=== PATIENT | male | born 1955 | race Caucasian/White ===

== ENCOUNTER 2017-01-11 07:53 | Inpatient (IN) | payer OTHER ==
[~2017-01-11] VITALS: Ht 182.9 cm; Wt 75.4 kg
[2017-01-11] MEDS ORDERED: SYMB16INH INH (08:10)
[2017-01-11] MEDS ORDERED: TIOT18INH INH (08:10)
[2017-01-11] MEDS ORDERED: PROAAER10 INH (08:10)
[2017-01-11] MEDS ORDERED: IPRATROPIUM 0.5MG/ALBUTEROL 2.5MG INH SOL UD 3ML (DUONEB)(J7620) As Ordered ONE (08:12)
[2017-01-11] MEDS ORDERED: methylPREDNISolone INJ 125 MG/2 ML VIAL (J2930) IV ONE (08:30)
[2017-01-11 08:42] LABS: BASO # 0.1 10^3/uL (0.0-0.2); BASO % 0.7 % (0.0-1.0); EOS # 0.4 10^3/uL (0.0-0.50); EOS % 3.9 % (0.0-3.0); IMMATURE GRANULOCYTE % 0.6 % (0-0); LYMPH # 1.5 10^3/uL (1.5-4.5); LYMPH % 14.2 % (24.0-44.0); MEAN CORPUSCULAR HEMOGLOBIN 30.7 pg (27.0-33.0); MEAN CORPUSCULAR HGB CONC 33.3 g/dl (32.0-36.5); MEAN CORPUSCULAR VOLUME 92.4 fl (80.0-96.0); MONO # 0.9 10^3/uL (0.0-0.8); MONO % 8.7 % (0.0-5.0); NEUTROPHILS # 7.7 10^3/uL (1.8-7.7); NEUTROPHILS % 71.9 % (36.0-66.0); PLATELET COUNT, AUTOMATED 235 10^3/uL (150-450); RED CELL DISTRIBUTION WIDTH 13.3 % (11.5-14.5); WHITE BLOOD COUNT 10.7 10^3/uL (4.0-10.0)
[2017-01-11] MEDS: IPRATROPIUM 0.5MG/ALBUTEROL 2.5MG INH SOL UD 3ML (DUONEB)(J7620) NEB PRN ×4 (08:49→16:47)
[2017-01-11 08:51] LABS: ABG BASE EXCESS -1.6 (-2.0-2.0); ABG HCO3 21.9 MEQ/L (22.0-26.0); ABG PARTIAL PRESSURE CO2 34.1 mmHg (35.0-45.0); ABG PARTIAL PRESSURE O2 62.2 mmHg (75.0-100.0); ABG TOTAL CO2 22.9 MEQ/L (23.0-31.0); ABG pH (ARTERIAL) 7.425 UNITS (7.350-7.450)
--- NOTE | 2017-01-11 08:54 | REP ---
Portable chest, 08:39 a.m.: Lung andrade are clear. Cardiac size is normal. The samuel and mediastinum are unremarkable. There is thoracic scoliosis convex right. Impression: No acute cardiopulmonary findings. Scoliosis. Signed by Marco Antonio Olsen MD 01/11/2017 08:46 A
[2017-01-11 09:11] LABS: ANION GAP 6 MEQ/L (8-16); BLOOD UREA NITROGEN 14 MG/DL (7-18); CALCIUM LEVEL 8.9 MG/DL (8.8-10.2); CARBON DIOXIDE LEVEL 26 MEQ/L (21-32); CHLORIDE LEVEL 110 MEQ/L (98-107); CREATININE FOR GFR 1.06 MG/DL (0.70-1.30); GLOMERULAR FILTRATION RATE > 60.0 (>49); GLUCOSE, FASTING 114 MG/DL (80-110); SODIUM LEVEL 142 MEQ/L (136-145)
[2017-01-11] MEDS ORDERED: SPIR12.9 INH (10:05)
[2017-01-11] MEDS ORDERED: VENTAER INH (10:05)
[2017-01-11] MEDS ORDERED: TYLE325T5 PO (10:06)
[2017-01-11] MEDS ORDERED: ACETAMINOPHEN TAB 650MG DOSE (2X325MG) PO PRN (10:45)
[2017-01-11] MEDS ORDERED: ISOVUE-370 76% 100ML VIAL (Q9967) As Ordered ONE (10:58)
[2017-01-11] MEDS ORDERED: ONDANSETRON 4MG/2ML VIAL (J2405) IV PRN (11:00)
--- NOTE | 2017-01-11 11:38 | REP ---
CT of the chest with IV contrast, CT pulmonary artery angiography: There are no emboli in the pulmonary trunk or central pulmonary arteries. There are no emboli in the pulmonary lobe or segment branches. There are no infiltrates or effusions. There are no masses or nodules. Bronchiectasis is suspected. This should be correlated with clinical findings. There is no mediastinal adenopathy. There is an enlarged right hilar node measuring up to 10 mm short axis. There is no left hilar adenopathy. There is no axillary adenopathy. The thoracic aorta is unremarkable. Cardiac size normal. There is no pericardial effusion. The visualized upper abdominal contents are unremarkable. Impression: No pulmonary embolus. No infiltrate, effusion or mass. Bronchiectasis is suspected. Correlate with clinical findings. There is an enlarged right hilar node measuring up to 1 cm short axis. No other adenopathy. Signed by Marco Antonio Olsen MD 01/11/2017 11:30 A
--- NOTE | 2017-01-11 11:52 | REP ---
CT NECK WITH CONTRAST: HISTORY: Rule out pulmonary embolism. CONTRAST: Isovue-370, 100 mL. Hypodensity is present in the right vallecula. This represents a small cyst or secretions. The naso-, apolonia-, and hypopharynx, larynx, and subglottic trachea are otherwise normal in appearance. The salivary and thyroid glands are normal in size and density. Small lymph nodes, less than 1 cm in size are present in the internal jugular chains, posterior triangles, submandibular, and submental areas. Atherosclerotic calcification is present at the carotid bifurcations. Degenerative change is present in the cervical spine. The lung apices are clear. Mucosal thickening is present in the sinuses. IMPRESSION: There is a small cyst versus secretions in the right vallecula. Unreviewed
[2017-01-11] MEDS: SYMBICORT 160/4.5MCG INHALER 6GM INH SCH ×2 (12:28→20:38)
[2017-01-11] MEDS: TIOTROPIUM INHALER/CAPSULE (SPIRIVA) INH SCH (12:28)
[2017-01-11] MEDS: NS 1,000 ML IV SCH ×2 (12:31→18:22)
[2017-01-11] MEDS: IPRATROPIUM 0.5MG/ALBUTEROL 2.5MG INH SOL UD 3ML (DUONEB)(J7620) NEB SCH ×2 (13:49→18:59)
--- NOTE | 2017-01-11 14:13 | HPE ---
DATE OF ADMISSION: 01/11/2017 PRIMARY CARE PROVIDER: Patient reported seeing a primary care doctor at [facility]. CARDIOLOGY: Patient sees Dr. Covarrubias at [facility]. PULMONOLOGY: Sees pulmonology at [facility]. CHIEF COMPLAINT: Shortness of breath. HISTORY OF THE PRESENT ILLNESS: This is a 61-year-old male patient. The patient is a very poor historian. He presented to [facility] with underlying medical history of gastroesophageal reflux disease (GERD), essential hypertension, history of traumatic brain injury, questionable, does not know who the name of his primary care provider, chronic obstructive pulmonary disease (COPD) and also atrial fibrillation - not on anticoagulation, presented to [facility] with shortness of breath, acute onset, for the past day or so, that is progressively worsening, found to be in atrial fibrillation with rapid ventricular response. The patient reported coughing, nonproductive. Denies any sick contact, recent travel. Reported questionable mold exposure at home given patient just recently moved into a friend's house. Has recently been intubated. Has a, as per patient, throat cyst. The patient in the emergency department (ED), was found to be in atrial fibrillation with rapid ventricular response into the 170s, given Cardizem, reverted back to sinus. Also given steroid nebulizer treatment with improvement. The patient reported significant wheezing, significant cough. Denies any chest pain, pressure, discomfort, fevers, chills, lightheadedness, vision change, hearing change, diarrhea, constipation. Denies any sick contact. The patient stated that his medications for atrial fibrillation and blood pressure have been discontinued by his doctor but further investigation was done. Spoke to Dr. Mullen at [facility], is aware that the patient does have a history of atrial fibrillation. The patient's anticoagulation was discontinued. Last visit was in October. Anticoagulation, Xarelto, was discontinued because it was believed that the patient has been in sinus for 2 months and the patient's atrial fibrillation is most likely due to patient's underlying pulmonary disease. Furthermore, the patient has been placed on lisinopril 5 mg by mouth daily and metoprolol 50 mg by mouth twice a day. That was not discontinued by the patient's route delivery service driver. Will obtain further information from patient's primary care provider. This information was further verified with Dr. Campbell, Cardiology manager mission as well. ALLERGIES: ASPIRIN and NONSTEROIDAL ANTI-INFLAMMATORY DRUGS (NSAIDS). PAST MEDICAL HISTORY: Hypertension. GERD. Atrial fibrillation. Traumatic brain injury. COPD, not oxygen dependent. PAST SURGICAL HISTORY: None. SOCIAL HISTORY: Smokes half a pack per day for 20+ years. Patient denies ethyl alcohol (ETOH), although it was suspicious that the patient might be minimizing his situation. He lives with a friend at this time. FAMILY HISTORY: Mother with hypertension. History of intubation due to COPD exacerbation. REVIEW OF SYSTEMS: Reported shortness of breath, was found to be in atrial fibrillation with rapid ventricular response in the emergency room. Further atrial fibrillation was verified with record from cardiology office. All other review of systems are negative. HOME MEDICATIONS: - acetaminophen 650 mg by mouth every 4 hours as needed - Ventolin inhaler every 4 hours as needed - Symbicort 160/4.5 inhalation twice a day - Spiriva inhalation daily - Although, patient should also be on lisinopril 5 mg by mouth daily, metoprolol 50 mg by mouth twice a day as well, according to cardiology record. PHYSICAL EXAMINATION: VITAL SIGNS: Temperature 98.1, pulse initially at 177, currently at 98, respirations 20, blood pressure 122/77, pulse oximetry 95% on 3 liters nasal cannula. GENERAL: Patient alert and oriented times three, in no acute distress. HEENT: Normocephalic, atraumatic. PULMONARY: Bilateral expiratory wheeze. CARDIAC: Regular rate and rhythm. Normal S1, S2. ABDOMEN: Soft, nontender. Positive bowel sounds. EXTREMITIES: No clubbing, cyanosis or edema. EKG initially shows atrial fibrillation with rapid ventricular response of 170. Repeat shows sinus rhythm with no ST segment changes. LABORATORY: WBC 10.7, hemoglobin and hematocrit 16.1 over 48.4, platelets 235. Chemistry: Sodium 142, potassium 4, chloride 110, bicarbonate 26, BUN 14, creatinine 1.06. Cardiac enzymes negative times two. TSH within normal limits. C-reactive protein within normal limits. CT angio negative for pulmonary embolism (PE). ASSESSMENT AND PLAN: This is a 61-year-old male patient with underlying medical history of chronic obstructive pulmonary disease, history of intubation, not on oxygen at home, hypertension, gastroesophageal reflux disease, traumatic brain injury, paroxysmal atrial fibrillation, admitted to [facility] with acute COPD exacerbation with atrial fibrillation with rapid ventricular response. Problems: 1. Acute chronic obstructive pulmonary disease (COPD) exacerbation, secondary to environmental exposure likely. Patient and family services (PFS) has been consulted. Patient reported having mold exposure from house. Solu-Medrol. Withholding antibiotic given C-reactive protein negative. Followup cultures and respiratory panel. CT angio negative for pulmonary embolism (PE). Nebulizer treatment, inhalers. Will taper steroids as tolerated. 2. Atrial fibrillation with rapid ventricular response. Patient converted to sinus with one dose of Cardizem. Case discussed with the on-call doctor from [facility], Dr. Mullen. Patient should be on metoprolol 50 mg by mouth twice a day, is not on anticoagulation, which was discontinued by the patient's route delivery service driver in October. Will place the patient back on Lopressor 25 mg by mouth twice a day and assess. If patient's respiration gets worse, will consider switching to Cardizem. Telemetry monitoring. Serial cardiac enzymes. Thyroid-stimulating hormone (TSH) appreciated. 3. Hypertension. Patient is on metoprolol 25 mg by mouth twice a day Adjust as needed. Patient is also supposed to be on lisinopril 5 mg by mouth daily, but the patient reported not taking any of those because he was under the impression that blood pressure elevation is due to his respiratory distress. Will monitor blood pressure and adjust as needed. Patient is ALLERGIC TO ASPIRIN. 4. Gastroesophageal reflux disease. Continue current proton pump inhibitor (PPI). 5. Chronic obstructive pulmonary disease (COPD). Management as above. 6. Deep vein thrombosis (DVT) prophylaxis. Heparin subcutaneously. DISPOSITION: Pending clinical improvement.
[2017-01-11 14:30] VITALS: BP 140/60
[2017-01-11] MEDS: PANTOPRAZOLE 40MG TAB (PROTONIX) PO SCH (14:50)
[2017-01-11] MEDS: HEPARIN SOD (PORCINE) 5000 UNITS/ML VIAL SC SCH ×2 (14:50→21:08)
[2017-01-11] MEDS: SENOKOT S TAB PO SCH ×2 (14:50→20:32)
[2017-01-11 16:00] VITALS: BP 133/83
[2017-01-11] MEDS: methylPREDNISolone INJ 125 MG/2 ML VIAL (J2930) IV SCH (16:39)
[2017-01-11] MEDS: guaiFENesin ER 600 MG TAB PO SCH (18:00)
[2017-01-11 20:00] VITALS: BP 128/81
[2017-01-11] MEDS: METOPROLOL TART 25 MG TABLET PO SCH (20:32)
[2017-01-11 23:59] VITALS: BP 124/72
[2017-01-12] MEDS: methylPREDNISolone INJ 125 MG/2 ML VIAL (J2930) IV SCH ×3 (01:12→16:13)
[2017-01-12] MEDS: IPRATROPIUM 0.5MG/ALBUTEROL 2.5MG INH SOL UD 3ML (DUONEB)(J7620) NEB SCH ×4 (02:21→20:41)
[2017-01-12 04:00] VITALS: BP 137/76
[2017-01-12 05:33] LABS: MEAN CORPUSCULAR HEMOGLOBIN 31.3 pg (27.0-33.0); MEAN CORPUSCULAR HGB CONC 33.7 g/dl (32.0-36.5); MEAN CORPUSCULAR VOLUME 92.9 fl (80.0-96.0); PLATELET COUNT, AUTOMATED 217 10^3/uL (150-450); RED CELL DISTRIBUTION WIDTH 13.3 % (11.5-14.5); WHITE BLOOD COUNT 20.8 10^3/uL (4.0-10.0)
[2017-01-12] MEDS: HEPARIN SOD (PORCINE) 5000 UNITS/ML VIAL SC SCH ×3 (05:40→21:23)
[2017-01-12 05:45] LABS: INR 1.04
[2017-01-12 05:54] LABS: ANION GAP 10 MEQ/L (8-16); BLOOD UREA NITROGEN 13 MG/DL (7-18); CALCIUM LEVEL 8.8 MG/DL (8.8-10.2); CARBON DIOXIDE LEVEL 24 MEQ/L (21-32); CHLORIDE LEVEL 110 MEQ/L (98-107); CREATININE FOR GFR 0.89 MG/DL (0.70-1.30); GLOMERULAR FILTRATION RATE > 60.0 (>49); GLUCOSE, FASTING 135 MG/DL (80-110); MAGNESIUM LEVEL 2.2 MG/DL (1.8-2.4); SODIUM LEVEL 144 MEQ/L (136-145)
[2017-01-12] MEDS: TIOTROPIUM INHALER/CAPSULE (SPIRIVA) INH SCH (07:19)
[2017-01-12] MEDS: SYMBICORT 160/4.5MCG INHALER 6GM INH SCH ×2 (07:19→20:43)
--- NOTE | 2017-01-12 07:59 | ECGEPIP ---
Stationary ECG Study [facility] - ED Test Date: 2017-01-11 Pat Name: ANDRA PAGAN Department: Room: - Gender: M Application Security Architect: ROCKY : 1955 Requested By: Rad Quintana Order Number: [id number] Reading MD: Nirali Toussaint Measurements Intervals [place] Rate: 177 P: KS: 0 QRS: 99 QRSD: 78 T: -76 QT: 234 QTc: 402 Interpretive Statements SUPRAVENTRICULAR TACHYCARDIA BORDERLINE RIGHT AXIS DEVIATION ST DEPRESSION, CONSIDER SUBENDOCARDIAL INJURY DLEAYED R PROGRESSION NO PRIOR FOR COMPARISON Electronically Signed On 01-12-2017 7:59:12 EDT by Nirali Toussaint
--- NOTE | 2017-01-12 08:00 | ECGEPIP ---
Stationary ECG Study [facility] - ED Test Date: 2017-01-11 Pat Name: ANDRA PAGAN Department: Room: - Gender: M Student Career Development Specialist: : 1955 Requested By: Rad Quintana Order Number: [id number] Reading MD: Nirali Toussaint Measurements Intervals [place] Rate: 91 P: 85 KS: 155 QRS: 88 QRSD: 83 T: 65 QT: 343 QTc: 423 Interpretive Statements SINUS RHYTHM DELAYED R PROGRESSION PRIOR NARROW COMPLEX TACHYCARDIA 8:12 Electronically Signed On 01-12-2017 8:00:31 EDT by Nirali Toussaint
[2017-01-12 08:06] VITALS: BP 142/92
[2017-01-12] MEDS: PANTOPRAZOLE 40MG TAB (PROTONIX) PO SCH (08:50)
[2017-01-12] MEDS: guaiFENesin ER 600 MG TAB PO SCH ×2 (08:50→20:39)
[2017-01-12] MEDS: METOPROLOL TART 25 MG TABLET PO SCH ×2 (08:50→17:42)
[2017-01-12] MEDS: SENOKOT S TAB PO SCH ×2 (08:50→20:39)
--- NOTE | 2017-01-12 09:17 | ECHO ---
DATE OF PROCEDURE: 01/11/2017 REFERRING PHYSICIAN: Dr. Cadena INDICATION: Cardiac dysrhythmia. Study was performed on 01/11/2017. Patient measures 72 inches and weighs 168 pounds. DIMENSIONS: IVS: 1.0 LV: 4.7 LVPW: 1.1 LA: 3.1 Aorta: 3.3 RV: 2.5 FINDINGS: This study is of acceptable technical quality. The views are somewhat limited on account of the patient's chronic obstructive pulmonary disease (COPD) . Left ventricle is of normal size and hyperdynamic contractility with estimated ejection fraction (EF) approximately 70%. I do not appreciate any segmental wall motion abnormalities. Right ventricle also appears normal size and systolic function. Both atria appear normal. Aortic, mitral and tricuspid valves appear normal. Pulmonic valve was not visualized. No pericardial effusion is noted. Inferior vena cava is normal size. Aortic root appears normal. Abdominal aorta also appears normal. Aortic arch was poorly seen. Doppler interrogation reveals no significant aortic, mitral or tricuspid valve disease. Mitral inflow pattern and tissue Doppler imaging of mitral annulus reveal probably normal diastolic function. The E and A velocities of mitral inflow are essentially the same. CONCLUSION: 1. Study is of acceptable technical quality considering patient's COPD. 2. Normal LV size and systolic function, likely normal diastolic function. 3. No significant valvular disease. 4. Normal central venous pressure. 5. Unable to estimate pulmonary artery pressure but no signs to suggest pulmonary hypertension. COMMENT: Subacute bacterial endocarditis (SBE) prophylaxis is not recommended. MTDD
[2017-01-12] MEDS ORDERED: SLF 3 ML SYR IV PRN (09:45)
[2017-01-12 12:00] VITALS: BP 125/87
--- NOTE | 2017-01-12 12:47 | IPNPDOC ---
Text Note Date of Service The patient was seen on 01/12/17. NOTE Subjective: Patient is a 61 year old male with a PMHx of HTN, Atrial fibrillation (not on anticoagulation), Hx of Traumatic brain injury, COPD, Hx of Throat cyst , and GERD who presented to the ER with complaints of acute onset SOB. Patient was found to be in a. fib with RVR in the ER. Patient was not on any medications for rate control, as he thought they were not required, confirmed with Dr. Mullen ([facility]) advised that he should be on Metoprolol BID. Xarelto was discontinued since he remained in sinus rhythm for 2 months. Patient was seen and examined at the bedside. Currently he notes that his breathing is improving. He still notes some wheezing and productive cough. Objective: Vitals (See below) General: Lying in bed, no acute distress, comfortable, AAOx3 HEENT: NC, AT CVS: RRR, +S1S2 Lungs: Fair air entry b/l, Diffuse expiratory wheezing Abdomen: Soft, ND, NT Extremities: - Edema, - Calf tenderness Assessment and plan: Acute COPD exacerbation - likely 2/2 environmental exposure - Presented with SOB, wheezing and productive cough - Physical with diffuse wheezing - Sputum culture contaminated, Resp Panel negative; Blood cultures - no growth at 24 hours - CTA 01/11: No PE, no infiltrates, effusion or mass, bronchiectasis suspected, enlarged R hilar node up to 1 cm, no other adenopathy - c/w Solumedrol and Duoneb - PFS consulted; has mold at his house Leukocytosis - likley 2/2 corticosteroid use - No fevers - Will hold off on antibiotics at this time s/p Atrial fibrillation with RVR - converted to sinus rhythm after Cardizem IV was given - TSH within normal limits - Dr. Cadena has discussed case with [facility] the [facility] (Dr. Mullen); will c/w Metoprolol for rate control - c/w Metoprolol tartrate 25 BID - Anticoagulation was discontinued HTN - BP remains moderately controlled - c/w Metoprolol 25 BID - If it remains uncontrolled; will re-start Lisinopril 5 Hx of Traumatic brain injury Throat cyst GERD - c/w Protonix DVT prophylaxis - c/w Heparin SQ VS,Fishbone, I+O VS, Fishbone, I+O Laboratory Tests 01/12/17 04:59 Red Blood Count 4.51, Mean Corpuscular Volume 92.9, Mean Corpuscular Hemoglobin 31.3, Mean Corpuscular Hemoglobin Concent 33.7, Red Cell Distribution Width 13.3 , Calcium Level 8.8 Vital Signs Date Time Temp Pulse Resp B/P (MAP) Pulse Ox O2 Delivery O2 Flow Rate FiO2 01/12/17 08:50 92 140/92 01/12/17 08:06 98.1 24 96 Nasal Cannula 3.0 I&O- Last 24 Hours up to 6 AM 01/13/17 06:00 Intake Total 240 ml Output Total 0 ml Balance 240 ml HIPOLITO CASTORENA MD Jan 12, 2017 12:47
[2017-01-12] MEDS: SLF 3 ML SYR IV SCH ×2 (13:23→21:23)
[2017-01-12 16:00] VITALS: BP 139/86
[2017-01-12 17:16] VITALS: BP 129/84
[2017-01-12 20:36] VITALS: BP 130/78
[2017-01-13] VITALS: BP 117/78
[2017-01-13] MEDS: methylPREDNISolone INJ 125 MG/2 ML VIAL (J2930) IV SCH ×2 (01:11→08:31)
[2017-01-13] MEDS: METOPROLOL TART 25 MG TABLET PO SCH ×4 (01:12→18:51)
[2017-01-13] MEDS: IPRATROPIUM 0.5MG/ALBUTEROL 2.5MG INH SOL UD 3ML (DUONEB)(J7620) NEB SCH ×4 (01:37→19:49)
[2017-01-13 04:00] VITALS: BP 140/70
[2017-01-13] MEDS: IPRATROPIUM 0.5MG/ALBUTEROL 2.5MG INH SOL UD 3ML (DUONEB)(J7620) NEB PRN ×2 (04:44→04:53)
[2017-01-13 05:24] LABS: MEAN CORPUSCULAR HEMOGLOBIN 30.7 pg (27.0-33.0); MEAN CORPUSCULAR HGB CONC 32.6 g/dl (32.0-36.5); MEAN CORPUSCULAR VOLUME 94.2 fl (80.0-96.0); PLATELET COUNT, AUTOMATED 252 10^3/uL (150-450); RED CELL DISTRIBUTION WIDTH 13.4 % (11.5-14.5); WHITE BLOOD COUNT 24.5 10^3/uL (4.0-10.0)
[2017-01-13] MEDS: HEPARIN SOD (PORCINE) 5000 UNITS/ML VIAL SC SCH ×2 (05:28→14:50)
[2017-01-13] MEDS: SLF 3 ML SYR IV SCH ×3 (05:29→21:24)
[2017-01-13 05:32] LABS: INR 1.01
[2017-01-13 05:36] LABS: ANION GAP 7 MEQ/L (8-16); BLOOD UREA NITROGEN 21 MG/DL (7-18); CALCIUM LEVEL 8.9 MG/DL (8.8-10.2); CARBON DIOXIDE LEVEL 26 MEQ/L (21-32); CHLORIDE LEVEL 111 MEQ/L (98-107); CREATININE FOR GFR 1.02 MG/DL (0.70-1.30); GLOMERULAR FILTRATION RATE > 60.0 (>49); GLUCOSE, FASTING 127 MG/DL (80-110); MAGNESIUM LEVEL 2.3 MG/DL (1.8-2.4); POTASSIUM SERUM 4.1 MEQ/L (3.5-5.1); SODIUM LEVEL 144 MEQ/L (136-145)
[2017-01-13] MEDS: SYMBICORT 160/4.5MCG INHALER 6GM INH SCH ×2 (07:18→19:50)
[2017-01-13] MEDS: TIOTROPIUM INHALER/CAPSULE (SPIRIVA) INH SCH (07:18)
[2017-01-13 08:00] VITALS: BP 127/87
[2017-01-13] MEDS: PANTOPRAZOLE 40MG TAB (PROTONIX) PO SCH (08:31)
[2017-01-13] MEDS: SENOKOT S TAB PO SCH ×2 (08:31→21:00)
[2017-01-13] MEDS: guaiFENesin ER 600 MG TAB PO SCH ×2 (08:31→21:24)
[2017-01-13 12:00] VITALS: BP 147/92
--- NOTE | 2017-01-13 14:07 | IPNPDOC ---
Text Note Date of Service The patient was seen on 01/13/17. NOTE Subjective: Patient is a 61 year old male with a PMHx of HTN, Atrial fibrillation (not on anticoagulation), Hx of Traumatic brain injury, COPD, Hx of Throat cyst , and GERD who presented to the ER with complaints of acute onset SOB. Patient was found to be in a. fib with RVR in the ER. Patient was not on any medications for rate control, as he thought they were not required, confirmed with Dr. Mullen ([facility]) advised that he should be on Metoprolol BID. Xarelto was discontinued since he remained in sinus rhythm for 2 months. Patient was seen and examined at the bedside. He notes that he has improvement in his breathing. He was noted to have an episode of atrial fibrillation with RVR yesterday afternoon and reverted back into sinus without any intervention. Objective: Vitals (See below) General: Lying in bed, no acute distress, comfortable, AAOx3 HEENT: NC, AT CVS: RRR, +S1S2 Lungs: Fair air entry b/l, Diffuse expiratory wheezing Abdomen: Soft, ND, NT Extremities: - Edema, - Calf tenderness Assessment and plan: Acute COPD exacerbation - likely 2/2 environmental exposure - Presented with SOB, wheezing and productive cough - Physical with diffuse wheezing - Sputum culture contaminated, Resp Panel negative; Blood cultures - no growth at 48 hours - CTA 01/11: No PE, no infiltrates, effusion or mass, bronchiectasis suspected, enlarged R hilar node up to 1 cm, no other adenopathy - c/w Solumedrol and Duoneb; Will taper solumedrol today - PFS consulted; has mold at his house Leukocytosis - likely 2/2 corticosteroid use - No fevers - Will hold off on antibiotics at this time Atrial fibrillation with RVR - Converted to sinus rhythm after Cardizem IV was given - Episode of a.fib with RVR on 01/12 afternoon - TSH within normal limits - Dr. Cadena has discussed case with [facility] (Dr. Mullen); will c/w Metoprolol for rate control - c/w Metoprolol tartrate 25 was increased to q6h for better rate controlled - Anticoagulation was discontinued by his Cask Maker, because patient was thought to be in sinus rhythm for 2 months - Will restart anticoagulation with Xarelto today HTN - BP remains moderately controlled - c/w Metoprolol 25 Q6H; will start lisinopril 5 Hx of Traumatic brain injury Throat cyst GERD - c/w Protonix DVT prophylaxis - on full anticoagulation with Xarelto VS,Fishbone, I+O VS, Fishbone, I+O Laboratory Tests 01/13/17 04:50 Red Blood Count 4.82, Mean Corpuscular Volume 94.2, Mean Corpuscular Hemoglobin 30.7, Mean Corpuscular Hemoglobin Concent 32.6, Red Cell Distribution Width 13.4 , Calcium Level 8.9 Vital Signs Date Time Temp Pulse Resp B/P (MAP) Pulse Ox O2 Delivery O2 Flow Rate FiO2 01/13/17 12:17 77 147/92 01/13/17 12:00 98.6 20 95 Nasal Cannula 3.0 I&O- Last 24 Hours up to 6 AM 01/14/17 06:00 Intake Total 240 ml Balance 240 ml HIPOLITO CASTORENA MD Jan 13, 2017 14:07
[2017-01-13] MEDS: LISINOPRIL 5 MG TAB PO SCH (15:35)
[2017-01-13 16:00] VITALS: BP 130/80
[2017-01-13] MEDS: RIVAROXABAN 20 MG TAB (XARELTO) PO SCH (18:51)
[2017-01-13 20:25] VITALS: BP 124/92
[2017-01-13] MEDS: methylPREDNISolone INJ 40 MG/1 ML VIAL (J2920) IV SCH (21:24)
[2017-01-14 00:27] VITALS: BP 128/82
[2017-01-14] MEDS: METOPROLOL TART 25 MG TABLET PO SCH ×3 (00:47→13:30)
[2017-01-14] MEDS: IPRATROPIUM 0.5MG/ALBUTEROL 2.5MG INH SOL UD 3ML (DUONEB)(J7620) NEB SCH ×4 (00:57→20:33)
[2017-01-14 04:05] VITALS: BP 142/98
[2017-01-14 05:27] LABS: MEAN CORPUSCULAR HEMOGLOBIN 30.8 pg (27.0-33.0); MEAN CORPUSCULAR HGB CONC 32.8 g/dl (32.0-36.5); MEAN CORPUSCULAR VOLUME 93.8 fl (80.0-96.0); PLATELET COUNT, AUTOMATED 214 10^3/uL (150-450); RED CELL DISTRIBUTION WIDTH 13.2 % (11.5-14.5); WHITE BLOOD COUNT 15.9 10^3/uL (4.0-10.0)
[2017-01-14 05:38] LABS: INR 1.53
[2017-01-14 05:45] LABS: ANION GAP 8 MEQ/L (8-16); BLOOD UREA NITROGEN 24 MG/DL (7-18); CALCIUM LEVEL 8.8 MG/DL (8.8-10.2); CARBON DIOXIDE LEVEL 29 MEQ/L (21-32); CHLORIDE LEVEL 108 MEQ/L (98-107); GLOMERULAR FILTRATION RATE > 60.0 (>49); GLUCOSE, FASTING 117 MG/DL (80-110); MAGNESIUM LEVEL 2.3 MG/DL (1.8-2.4); POTASSIUM SERUM 4.2 MEQ/L (3.5-5.1); SODIUM LEVEL 145 MEQ/L (136-145)
[2017-01-14] MEDS: SLF 3 ML SYR IV SCH ×3 (06:43→20:22)
[2017-01-14 07:40] VITALS: BP 142/80
[2017-01-14] MEDS: TIOTROPIUM INHALER/CAPSULE (SPIRIVA) INH SCH (08:41)
[2017-01-14] MEDS: SYMBICORT 160/4.5MCG INHALER 6GM INH SCH ×2 (08:41→20:38)
[2017-01-14] MEDS: methylPREDNISolone INJ 40 MG/1 ML VIAL (J2920) IV SCH (09:03)
[2017-01-14] MEDS: LISINOPRIL 5 MG TAB PO SCH (09:03)
[2017-01-14] MEDS: guaiFENesin ER 600 MG TAB PO SCH ×2 (09:04→20:21)
[2017-01-14] MEDS: PANTOPRAZOLE 40MG TAB (PROTONIX) PO SCH (09:04)
[2017-01-14] MEDS: SENOKOT S TAB PO SCH ×2 (09:04→20:21)
[2017-01-14 12:40] VITALS: BP 154/78
--- NOTE | 2017-01-14 14:15 | IPNPDOC ---
Text Note Date of Service The patient was seen on 01/14/17. NOTE Subjective: Patient is a 61 year old male with a PMHx of HTN, Atrial fibrillation (not on anticoagulation), Hx of Traumatic brain injury, COPD, Hx of Throat cyst , and GERD who presented to the ER with complaints of acute onset SOB. Patient was found to be in a. fib with RVR in the ER. Patient was not on any medications for rate control, as he thought they were not required, confirmed with Dr. Mullen ([facility]) advised that he should be on Metoprolol BID. Xarelto was discontinued since he remained in sinus rhythm for 2 months. Patient was seen and examined at the bedside. He notes that his breathing is doing better. Has not any additional episodes of atrial fibrillation. Currently still requiring supplemental oxygen. Objective: Vitals (See below) General: Lying in bed, no acute distress, comfortable, AAOx3 HEENT: NC, AT CVS: RRR, +S1S2 Lungs: Fair air entry b/l, Diffuse expiratory wheezing Abdomen: Soft, ND, NT Extremities: - Edema, - Calf tenderness Assessment and plan: Acute COPD exacerbation - likely 2/2 environmental exposure - Presented with SOB, wheezing and productive cough - Physical with mild expiratory wheezing - Sputum culture contaminated, Resp Panel negative; Blood cultures - no growth at 72 hours - CTA 01/11: No PE, no infiltrates, effusion or mass, bronchiectasis suspected, enlarged R hilar node up to 1 cm, no other adenopathy - c/w and DuoNeb; Will stop Solumedrol and Start Prednisone - PFS consulted; has mold at his house Leukocytosis - likely 2/2 corticosteroid use - No fevers - Will hold off on antibiotics at this time Atrial fibrillation with RVR - In ER converted to sinus rhythm after Cardizem IV was given; additional episode of a.fib with RVR on 01/12 afternoon - TSH within normal limits - Will start Metoprolol succinate to 50 BID; stop Metoprolol tartrate 25 q6h - c/w Xarelto today - Follow up with outpatient sports management professor HTN - BP remains moderately controlled - c/w Metoprolol and Lisinopril Hx of Traumatic brain injury Throat cyst GERD - c/w Protonix DVT prophylaxis - on full anticoagulation with Xarelto VS,Fishbone, I+O VS, Fishbone, I+O Laboratory Tests 01/14/17 05:01 Red Blood Count 4.68, Mean Corpuscular Volume 93.8, Mean Corpuscular Hemoglobin 30.8, Mean Corpuscular Hemoglobin Concent 32.8, Red Cell Distribution Width 13.2 , Calcium Level 8.8 Vital Signs Date Time Temp Pulse Resp B/P (MAP) Pulse Ox O2 Delivery O2 Flow Rate FiO2 01/14/17 09:03 95 Room Air 01/14/17 07:40 99.8 66 20 142/80 (100) 3.0 I&O- Last 24 Hours up to 6 AM 01/15/17 06:00 Intake Total 480 ml Balance 480 ml HIPOLITO CASOTRENA MD Jan 14, 2017 14:15
[2017-01-14] MEDS ORDERED: PRED10TA2 PO (14:16)
[2017-01-14] MEDS ORDERED: METO1TAB7 PO (14:16)
[2017-01-14] MEDS ORDERED: LISI-542 PO (14:16)
[2017-01-14] MEDS ORDERED: XARE20TA PO (14:16)
[2017-01-14 15:45] VITALS: BP 132/64
[2017-01-14] MEDS: RIVAROXABAN 20 MG TAB (XARELTO) PO SCH (17:31)
[2017-01-14] MEDS: predniSONE 20 MG TAB PO SCH (20:20)
[2017-01-14] MEDS: METOPROLOL SUCC (TopROL XL) 50MG **XL** TAB PO SCH (20:22)
[2017-01-15 00:45] VITALS: BP 106/65
[2017-01-15] MEDS: IPRATROPIUM 0.5MG/ALBUTEROL 2.5MG INH SOL UD 3ML (DUONEB)(J7620) NEB SCH ×2 (02:00→07:13)
[2017-01-15 03:35] VITALS: BP 127/89
[2017-01-15] MEDS: SLF 3 ML SYR IV SCH (05:23)
[2017-01-15 05:32] LABS: MEAN CORPUSCULAR HEMOGLOBIN 31.1 pg (27.0-33.0); MEAN CORPUSCULAR HGB CONC 33.4 g/dl (32.0-36.5); MEAN CORPUSCULAR VOLUME 93.1 fl (80.0-96.0); PLATELET COUNT, AUTOMATED 223 10^3/uL (150-450); RED CELL DISTRIBUTION WIDTH 13.1 % (11.5-14.5); WHITE BLOOD COUNT 15.1 10^3/uL (4.0-10.0)
[2017-01-15 05:45] LABS: ANION GAP 4 MEQ/L (8-16); BLOOD UREA NITROGEN 21 MG/DL (7-18); CALCIUM LEVEL 8.6 MG/DL (8.8-10.2); CARBON DIOXIDE LEVEL 30 MEQ/L (21-32); CHLORIDE LEVEL 107 MEQ/L (98-107); CREATININE FOR GFR 0.97 MG/DL (0.70-1.30); GLOMERULAR FILTRATION RATE > 60.0 (>49); GLUCOSE, FASTING 125 MG/DL (80-110); INR 1.41; MAGNESIUM LEVEL 2.2 MG/DL (1.8-2.4); POTASSIUM SERUM 4.3 MEQ/L (3.5-5.1); SODIUM LEVEL 141 MEQ/L (136-145)
[2017-01-15] MEDS: SYMBICORT 160/4.5MCG INHALER 6GM INH SCH (07:13)
[2017-01-15] MEDS: TIOTROPIUM INHALER/CAPSULE (SPIRIVA) INH SCH (07:13)
[2017-01-15 07:30] VITALS: BP 131/91
[2017-01-15 08:31] VITALS: BP 108/80
[2017-01-15] MEDS: LISINOPRIL 5 MG TAB PO SCH (08:31)
[2017-01-15] MEDS: predniSONE 20 MG TAB PO SCH (08:32)
[2017-01-15] MEDS: guaiFENesin ER 600 MG TAB PO SCH (08:32)
[2017-01-15] MEDS: PANTOPRAZOLE 40MG TAB (PROTONIX) PO SCH (08:32)
[2017-01-15] MEDS: SENOKOT S TAB PO SCH (08:33)
[2017-01-15] MEDS: METOPROLOL SUCC (TopROL XL) 50MG **XL** TAB PO SCH (08:33)
[2017-01-15] MEDS: IPRATROPIUM 0.5MG/ALBUTEROL 2.5MG INH SOL UD 3ML (DUONEB)(J7620) NEB PRN (11:08)
--- NOTE | 2017-01-18 13:44 | DSES ---
DATE OF ADMISSION: 01/11/2017 DATE OF DISCHARGE: 01/15/2017 ATTENDING PHYSICIAN: Marilyn Watts MD, Suzanne Cadena MD. PRIMARY CARE PHYSICIAN: In [place]. REFERRING PHYSICIAN: None. CONSULTING PHYSICIAN: None. CONDITION ON DISCHARGE: Stable. FINAL DIAGNOSES: 1. Acute chronic obstructive pulmonary disease (COPD) exacerbation. 2. Atrial fibrillation with rapid ventricular response (RVR). PROCEDURES: None. HISTORY OF PRESENT ILLNESS: Patient is a 61-year-old male with a past medical history of hypertension, atrial fibrillation, not on any anticoagulation after traumatic brain injury, COPD, history of throat cyst, and gastroesophageal reflux disease (GERD), who presented to the emergency room (ER) with complaints of acute onset shortness of breath. Patient was found to be in atrial fibrillation with RVR in the emergency room. Patient was not on any medications for rate control as he thought that they were not required. Confirmed with Dr. Mullen of [facility] Advised that he should be on metoprolol twice a day. Xarelto was discontinued since he remained in sinus rhythm for 2 months. HOSPITAL COURSE: 1. Acute COPD exacerbation with acute hypoxic respiratory failure, likely secondary to environmental exposure. Presented with shortness of breath, wheezing, and productive cough. Upon arrival, patient had an oxygenation of 88% status post 2 nebulization treatments with respiratory rate of 36 and he was tripoding upon arrival. Physical has revealed that his wheezing has improved significantly throughout the hospital course and is currently resolved. Sputum culture was contaminated. Respiratory panel was negative. Blood cultures were negative after 72 hours. CTA was acquired on 01/11/2017, which revealed no pulmonary embolism, no infiltrates, effusions, or mass. Bronchiectasis was suspected and large right hilar node up to 1 cm with no other adenopathy. Patient was continued with DuoNebs and continued with Solu-Medrol throughout the hospital course and was then transitioned to prednisone orally. He will be continued on prednisone on a tapering basis upon discharge. Patient has been advised to followup with his primary care provider within the next 7 days prior to completion of his prednisone. 2. Leukocytosis, likely secondary to corticosteroid use. No fevers were noted. Will hold off on antibiotics at this time. 3. Atrial fibrillation with RVR. In the emergency room, patient was converted back to sinus rhythm after he was given a dose of Cardizem IV. Additional episode of atrial fibrillation RVR occurred on 01/12/2017 afternoon, and patient received additional diltiazem and reverted back to normal sinus rhythm. Thyroid-stimulating hormone (TSH) was within normal limits. Patient's dose of metoprolol tartrate was increased to 25 mg every 6 hours and then transitioned to metoprolol succinate 50 mg by mouth twice a day. Patient was restarted on his anticoagulation with Xarelto and has been advised to followup with his outpatient brick catcher. 4. Hypertension. Blood pressure remains moderately controlled. Continue with metoprolol and lisinopril. 5. History of traumatic brain injury. 6. Throat cyst. CT scan of his neck was acquired, which revealed there was a small cyst versus secretions in his right vallecula. However, there was no respiratory compromise that was noted. Patient has been advised to followup with his primary care provider as an outpatient. 7. GERD. Continue with Protonix. 8. Deep venous thrombosis (DVT) prophylaxis. On full anticoagulation with Xarelto. DISCHARGE MEDICATION: Patient will be discharged home with the following medication list: - lisinopril 5 mg by mouth daily - metoprolol succinate 50 mg by mouth twice a day - prednisone 10 mg to be taken as directed on a tapering basis - Xarelto 20 mg by mouth daily - acetaminophen 650 mg by mouth every 4 hours as needed pain - albuterol sulfate two puffs inhaled every 4 hours as needed shortness of breath - Symbicort two puffs inhaled twice a day - Spiriva two puffs inhaled daily DISCHARGE INSTRUCTIONS: Patient has been advised to followup with his primary care provider as well as brick catcher within the next 7 days. He has been advised to remain compliant with treatment plan and medications and to return to the emergency room if he experiences any problems. Time spent on discharge: Greater than 35 minutes.
== END 2017-01-15 12:57 | disposition home or self-care (01) | DRG 140 ==
LOC: EDBD 07:53 → M ED 07:53 → M ED INP 10:51 → M PCU 14:26
PROVIDERS: ADMIT Hospitalist; ATTEND Hospitalist
DX: J44.1 Chronic obstructive pulmonary disease with (acute) exacerbation (principal); J96.01 Acute respiratory failure with hypoxia; I48.91 Unspecified atrial fibrillation; K21.9 Gastro-esophageal reflux disease without esophagitis; F17.210 Nicotine dependence, cigarettes, uncomplicated; I10 Essential (primary) hypertension; Z88.6 Allergy status to analgesic agent; Z87.820 Personal history of traumatic brain injury; Z79.899 Other long term (current) drug therapy

== ENCOUNTER 2024-04-26 02:06 | Inpatient (IN) | payer MEDICARE, OTHER ==
[~2024-04-26] VITALS: Ht 182.9 cm; Wt 91.7 kg
[~2024-04-26 02:06] MED LIST: LISI5TAB11 PO; METO1TAB7 PO; PRED10TA2 PO; PROAAER10 INH; SPIR12.9 INH; SYMB16INH INH; TIOT18INH INH; TYLE325T5 PO; VENTAER INH; XARE20TA PO
[2024-04-26] MEDS: IPRATROPIUM 0.5MG/ALBUTEROL 2.5MG INH SOL UD 3ML (DUONEB) NEB SCH ×2 (02:26→08:33)
[2024-04-26 02:37] LABS: VENOUS BASE EXCESS 1.3 (-2.0-2.0); VENOUS HCO3 30.5 MMOL/L (23.0-27.0); VENOUS O2 SATURATION 44.6 % (60.0-80.0); VENOUS PARTIAL PRESSURE CO2 64.8 mmHg (38.0-50.0); VENOUS PARTIAL PRESSURE O2 26.1 mmHg (30.0-50.0); VENOUS PH 7.291 UNITS (7.330-7.430); VENOUS STANDARD HCO3 23.8 MMOL/L; VENOUS TOTAL CO2 32.5 MMOL/L (24.0-28.0)
[2024-04-26 02:47] LABS: BASO # 0.2 10^3/uL (0.0-0.2); EOS # 2.2 10^3/uL (0.0-0.5); EOS % 14.3 % (0.0-3.0); HEMATOCRIT 54.9 % (42.0-52.0); HEMOGLOBIN 18.9 g/dl (13.5-17.5); LYMPH # 2.9 10^3/uL (1.5-5.0); LYMPH % 18.7 % (24.0-44.0); MEAN CORPUSCULAR HEMOGLOBIN 30.5 pg (27.0-33.0); MEAN CORPUSCULAR HGB CONC 34.4 g/dl (32.0-36.5); MEAN CORPUSCULAR VOLUME 88.5 fl (80.0-96.0); MONO # 1.4 10^3/uL (0.0-0.8); MONO % 9.1 % (2.0-8.0); NEUTROPHILS # 8.6 10^3/uL (1.5-8.5); NEUTROPHILS % 55.7 % (36.0-66.0); PLATELET COUNT, AUTOMATED 287 10^3/uL (150-450); WHITE BLOOD COUNT 15.4 10^3/uL (4.0-10.0)
[2024-04-26] MEDS: methylPREDNISolone 125MG 2ML VIAL IV ONE (02:56)
[2024-04-26 03:09] LABS: CPK CREATINE PHOSPHOKINASE 196 U/L (46-171)
[2024-04-26 03:10] LABS: ALBUMIN 3.8 G/DL (3.2-5.2); ALKALINE PHOSPHATASE 96 U/L (40-129); ALT/SGPT 25 U/L (7.0-40); AST/SGOT 19 U/L (<34); BILIRUBIN,DIRECT 0.2 MG/DL (<0.4); BILIRUBIN,TOTAL 0.6 MG/DL (0.3-1.2); BLOOD UREA NITROGEN 16 MG/DL (9-23); CALCIUM LEVEL 8.9 MG/DL (8.3-10.6); CARBON DIOXIDE LEVEL 27 MMOL/L (20-31); CHLORIDE LEVEL 105 MMOL/L (98-107); CK-MB VALUE MASS 7.9 NG/ML (<3.6); CREATININE FOR GFR 0.99 MG/DL (0.70-1.30); GLOMERULAR FILTRATION RATE > 60.0 (>49); GLUCOSE, FASTING 121 MG/DL (74-106); MB/CK RELATIVE INDEX 4.03 (< OR =4); POTASSIUM SERUM 3.6 MMOL/L (3.5-5.1); SODIUM LEVEL 142 MMOL/L (136-145); TOTAL PROTEIN 6.7 G/DL (5.7-8.2)
[2024-04-26] MEDS ORDERED: ISOVUE-370 76% 100ML VIAL As Ordered ONE (03:45)
[2024-04-26 03:56] LABS: ABG BASE EXCESS -0.6 (-2.0-2.0); ABG HCO3 23.3 MMOL/L (22.0-26.0); ABG O2 SATURATION 98.8 % (95.0-99.0); ABG PARTIAL PRESSURE CO2 36.6 mmHg (35.0-45.0); ABG PARTIAL PRESSURE O2 140.1 mmHg (75.0-100.0); ABG TOTAL CO2 24.4 MMOL/L (23.0-31.0); ABG pH (ARTERIAL) 7.421 UNITS (7.350-7.450)
[2024-04-26 04:06] LABS: CK-MB VALUE MASS 9.6 NG/ML (<3.6)
[2024-04-26 04:09] LABS: MB/CK RELATIVE INDEX 4.89 (< OR =4)
[2024-04-26] MEDS ORDERED: MOM 30ML SUSPENSION UDC PO PRN (05:15)
[2024-04-26] MEDS: cefTRIAXone SOD 2 GM in DEXTROSE 5% (D5W) ADV/MINI-BAG 50 ML IV ONE (05:38)
[2024-04-26] MEDS: DOCUSATE SODIUM 100MG CAPSULE PO SCH (07:44)
[2024-04-26] MEDS: PANTOPRAZOLE 40MG VIAL IV SCH (08:12)
[2024-04-26] MEDS: DOXYCYCLINE HYCLATE 100MG TABLET PO SCH (08:12)
[2024-04-26] MEDS: SYMBICORT 160/4.5MCG INHALER 6GM INH SCH (08:34)
[2024-04-26] MEDS: SODIUM CHLORIDE HYPERTONIC 3% 4ML NEB SOL NEB ONE (08:34)
[2024-04-26] MEDS ORDERED: ENOXAPARIN 40MG/0.4ML SYRINGE (J1650 PER 10MG) SC SCH (09:00)
[2024-04-26] MEDS: guaiFENesin ER TABLET 600 MG TAB PO SCH (10:47)
[2024-04-26] MEDS: LevoFLOXacin 750 MG TABLET PO SCH (10:47)
[2024-04-26] MEDS: methylPREDNISolone 40MG 1ML VIAL IV SCH (10:47)
[2024-04-26] MEDS ORDERED: DILT120C89 PO (11:20)
[2024-04-26] MEDS ORDERED: XARE20TA PO (11:20)
[2024-04-26] MEDS ORDERED: FEXO-63 PO (11:20)
[2024-04-26] MEDS ORDERED: BREO1INH3 INH (11:20)
[2024-04-26] MEDS ORDERED: HYDR12CA PO (11:20)
[2024-04-26] MEDS ORDERED: ALBU2.5V10 INH (11:20)
[2024-04-26] MEDS ORDERED: VALS1TAB66 PO (11:39)
[2024-04-26] MEDS ORDERED: HOME MED LIST COMPLETE! XX SCH (11:45)
[2024-04-26] MEDS: VALSARTAN 80 MG TAB (DIOVAN) PO SCH (12:39)
[2024-04-26] MEDS: hydroCHLOROthiazide 12.5 MG CAPSULE PO SCH (12:40)
[2024-04-26] MEDS: dilTIAZem 120MG **CD** CAPSULE PO SCH ×2 (12:40→20:12)
[2024-04-26] MEDS: RIVAROXABAN 20MG TAB (XARELTO) PO SCH (12:40)
[2024-04-26 13:40] VITALS: BP 149/102; TEMP 98.4; O2SAT 92
[2024-04-26 14:19] VITALS: O2SAT 94
[2024-04-26 17:56] VITALS: BP 143/102
[2024-04-26] MEDS: ALBUTEROL SULFATE 2.5MG/0.5ML INH NEB SOLN NEB PRN (18:58)
[2024-04-26 20:00] VITALS: BP 135/82; TEMP 97.9; O2SAT 93
[2024-04-26] MEDS: FORMOTEROL FUMARATE 20 MCG/2 ML INHALATION SOLUTION (PERFOROMIST) INH SCH (20:27)
[2024-04-26] MEDS: BUDESONIDE 0.5 MG/2 ML INHALATION SUSPENSION NEB SCH (20:28)
[2024-04-27] VITALS (8 sets, daily range): BP systolic 132–138; BP diastolic 70–82; TEMP 97.3–98.4; O2SAT 90–95
[2024-04-27 06:26] LABS: BASO % 0.1 % (0.0-1.0); HEMATOCRIT 47.9 % (42.0-52.0); LYMPH # 1.2 10^3/uL (1.5-5.0); LYMPH % 4.2 % (24.0-44.0); MEAN CORPUSCULAR HEMOGLOBIN 30.6 pg (27.0-33.0); MEAN CORPUSCULAR HGB CONC 34.7 g/dl (32.0-36.5); MEAN CORPUSCULAR VOLUME 88.2 fl (80.0-96.0); MONO # 1.6 10^3/uL (0.0-0.8); MONO % 5.4 % (2.0-8.0); NEUTROPHILS # 26.2 10^3/uL (1.5-8.5); NEUTROPHILS % 89.4 % (36.0-66.0); PLATELET COUNT, AUTOMATED 267 10^3/uL (150-450); RED BLOOD COUNT 5.43 10^6/uL (4.30-6.10); WHITE BLOOD COUNT 29.3 10^3/uL (4.0-10.0)
[2024-04-27 06:32] LABS: HEMOGLOBIN 16.6 g/dl (13.5-17.5)
[2024-04-27 06:55] LABS: BLOOD UREA NITROGEN 26 MG/DL (9-23); CALCIUM LEVEL 9.4 MG/DL (8.3-10.6); CARBON DIOXIDE LEVEL 25 MMOL/L (20-31); CHLORIDE LEVEL 105 MMOL/L (98-107); CREATININE FOR GFR 1.04 MG/DL (0.70-1.30); GLOMERULAR FILTRATION RATE > 60.0 (>49); GLUCOSE, FASTING 135 MG/DL (74-106); POTASSIUM SERUM 3.9 MMOL/L (3.5-5.1); SODIUM LEVEL 142 MMOL/L (136-145)
[2024-04-27] MEDS: guaiFENesin ER TABLET 600 MG TAB PO SCH (09:45)
[2024-04-27 10:04] LABS: PROCALCITONIN 0.07 ng/ml
[2024-04-27] MEDS: methylPREDNISolone 40MG 1ML VIAL IV SCH (20:36)
[2024-04-28] MEDS: LEVALBUTEROL 1.25MG 0.5ML CONCENTRATE NEB INH SCH ×3 (02:06→13:57)
[2024-04-28] MEDS: IPRATROPIUM 0.02% SOLN 0.5MG 2.5ML NEB INH SCH ×2 (02:07→07:43)
[2024-04-28 04:26] VITALS: BP 128/81; TEMP 97.9; O2SAT 93
[2024-04-28 05:21] LABS: BASO % 0.2 % (0.0-1.0); EOS % 0.1 % (0.0-3.0); HEMATOCRIT 47.6 % (42.0-52.0); HEMOGLOBIN 16.3 g/dl (13.5-17.5); LYMPH # 0.9 10^3/uL (1.5-5.0); LYMPH % 3.4 % (24.0-44.0); MEAN CORPUSCULAR HEMOGLOBIN 30.5 pg (27.0-33.0); MEAN CORPUSCULAR HGB CONC 34.2 g/dl (32.0-36.5); MONO % 4.1 % (2.0-8.0); NEUTROPHILS # 22.6 10^3/uL (1.5-8.5); NEUTROPHILS % 91.5 % (36.0-66.0); PLATELET COUNT, AUTOMATED 252 10^3/uL (150-450); RED BLOOD COUNT 5.35 10^6/uL (4.30-6.10); WHITE BLOOD COUNT 24.6 10^3/uL (4.0-10.0)
[2024-04-28] MEDS: ACETAMINOPHEN 325 MG TAB PO PRN (05:36)
[2024-04-28 05:52] LABS: BLOOD UREA NITROGEN 29 MG/DL (9-23); CALCIUM LEVEL 9.4 MG/DL (8.3-10.6); CARBON DIOXIDE LEVEL 26 MMOL/L (20-31); CHLORIDE LEVEL 106 MMOL/L (98-107); CREATININE FOR GFR 1.08 MG/DL (0.70-1.30); GLOMERULAR FILTRATION RATE > 60.0 (>49); GLUCOSE, FASTING 156 MG/DL (74-106); POTASSIUM SERUM 4.4 MMOL/L (3.5-5.1); SODIUM LEVEL 143 MMOL/L (136-145)
[2024-04-28] MEDS: SODIUM CHLORIDE HYPERTONIC 3% 4ML NEB SOL INH SCH ×2 (08:00→13:57)
[2024-04-28] MEDS ORDERED: IPRATROPIUM 0.02% SOLN 0.5MG 2.5ML NEB INH SCH (08:00)
[2024-04-28 09:00] VITALS: O2SAT 93
[2024-04-28 12:00] VITALS: BP 143/89; TEMP 98.1; O2SAT 92
[2024-04-28 20:30] VITALS: BP 141/89; TEMP 98.2; O2SAT 92
[2024-04-28 20:31] VITALS: TEMP 97.1
[2024-04-28 23:00] VITALS: O2SAT 91
[2024-04-28] MEDS: LORATADINE 10 MG TAB PO ONE (23:22)
[2024-04-29 04:20] VITALS: BP 138/83; TEMP 97.5; O2SAT 93
[2024-04-29 04:21] VITALS: TEMP 97.4
[2024-04-29 05:21] LABS: BASO % 0.1 % (0.0-1.0); EOS % 0.1 % (0.0-3.0); HEMATOCRIT 49.8 % (42.0-52.0); HEMOGLOBIN 16.7 g/dl (13.5-17.5); LYMPH # 0.8 10^3/uL (1.5-5.0); MEAN CORPUSCULAR HEMOGLOBIN 29.9 pg (27.0-33.0); MEAN CORPUSCULAR HGB CONC 33.5 g/dl (32.0-36.5); MEAN CORPUSCULAR VOLUME 89.2 fl (80.0-96.0); MONO # 1.1 10^3/uL (0.0-0.8); MONO % 5.3 % (2.0-8.0); NEUTROPHILS # 18.6 10^3/uL (1.5-8.5); NEUTROPHILS % 89.8 % (36.0-66.0); PLATELET COUNT, AUTOMATED 255 10^3/uL (150-450); RED BLOOD COUNT 5.58 10^6/uL (4.30-6.10); WHITE BLOOD COUNT 20.7 10^3/uL (4.0-10.0)
[2024-04-29] MEDS ORDERED: LEVALBUTEROL 1.25MG 0.5ML CONCENTRATE NEB INH PRN (05:40)
[2024-04-29 05:44] LABS: BLOOD UREA NITROGEN 26 MG/DL (9-23); CALCIUM LEVEL 9.4 MG/DL (8.3-10.6); CARBON DIOXIDE LEVEL 26 MMOL/L (20-31); CHLORIDE LEVEL 107 MMOL/L (98-107); CREATININE FOR GFR 1.01 MG/DL (0.70-1.30); GLOMERULAR FILTRATION RATE > 60.0 (>49); GLUCOSE, FASTING 144 MG/DL (74-106); POTASSIUM SERUM 4.2 MMOL/L (3.5-5.1); SODIUM LEVEL 143 MMOL/L (136-145)
[2024-04-29 09:40] VITALS: BP 138/83
[2024-04-29] MEDS ORDERED: PRED10TA2 PO (10:43)
[2024-04-29] MEDS ORDERED: MUCI600T31 PO (10:43)
[2024-04-29] MEDS ORDERED: LEVO75TAB PO (10:43)
[2024-04-29] MEDS ORDERED: CVS1CAP2 PO (10:49)
== END 2024-04-29 13:54 | disposition home or self-care (01) | DRG 189 ==
LOC: M ED 02:06 → M ED INP 02:07 → M MSPAV 13:30 → OBSVTOIN 04-27 12:01
PROVIDERS: ADMIT Family Medicine; ATTEND Student in an Organized Health Care Education/Training Program
DX: J96.01 Acute respiratory failure with hypoxia (principal); J44.1 Chronic obstructive pulmonary disease with (acute) exacerbation; J45.901 Unspecified asthma with (acute) exacerbation; I10 Essential (primary) hypertension; K21.9 Gastro-esophageal reflux disease without esophagitis; D75.1 Secondary polycythemia; I48.0 Paroxysmal atrial fibrillation; Z79.899 Other long term (current) drug therapy; Z88.8 Allergy status to other drugs, medicaments and biological substances; Z88.6 Allergy status to analgesic agent